=== PATIENT | male | born 1955 | race Caucasian/White ===

== ENCOUNTER 2017-10-05 11:27 | Emergency (ER) | payer OTHER ==
[~2017-10-05] VITALS: Ht 162.6 cm; Wt 75.7 kg
[2017-10-05 12:03] VITALS: Ht 162.6 cm; Wt 75.7 kg
[2017-10-05 16:37] VITALS: BP 124/71
== END 2017-10-05 16:37 | disposition home or self-care (01) ==
LOC: ED 11:27
DX: J11.1 Influenza due to unidentified influenza virus with other respiratory manifestations (principal)
CPT/HCPCS: 87804; J1885; J7030; Q0092